=== PATIENT | female | born 1980 | race Caucasian/White ===

== ENCOUNTER → 2021-08-21 15:02 | Outpatient (CLI) | payer OTHER, SELFPAY ==
[2021-08-21 16:06] LABS: Add Manual Diff / Slide Review NO; Basophils Absolute Auto 0 /uL (0-100); Basophils Percent Auto 0.3 % (0-2); Eosinophils Absolute Auto 100 /uL (0-450); Eosinophils Percent Auto 1.4 % (2-4); Hematocrit 34.1 % (36-46); Hemoglobin 11.6 g/dL (12.0-16.0); Lymphocytes Absolute Auto 1000 /uL (1100-4500); Lymphocytes Percent Auto 12.6 % (25-40); Mean Corpuscular HGB Conc 34.1 % (30-36); Mean Corpuscular Hemoglobin 28.9 PG (26-34); Mean Corpuscular Volume 84.8 fL (80-100); Monocytes Absolute Auto 400 /uL (0-900); Monocytes Percent Auto 5.1 % (3-14); Neutrophils Absolute Auto 6300 /uL (1500-7000); Neutrophils Percent Auto 80.6 % (50-75); Platelet Count 160 X10^3/uL (150-400); Red Blood Cell Count 4.02 X10^6/uL (4.0-5.2); Red Cell Distribution Width 13.5 % (11.6-14.8); White Blood Cell Count 7.8 X10^3/uL (4.5-11.0)
[2021-08-22 06:50] LABS: RPR Screen Non Reactive (Non Reactive)
[2021-08-22 07:30] LABS: Varicella IgG Antibody <135 index (Immune >165)
[2021-08-22 11:23] LABS: HIV 1 & 2 Ab/Ag 4th Gen Combo NEGATIVE (NEGATIVE); Hep C Virus Ab w/Reflex Quant NEGATIVE s/c (NEGATIVE); Hepatitis B Surface Antigen NEGATIVE s/c (NEGATIVE)
[2021-08-22 11:24] LABS: Rubella Antibody IgG 12.6 IU/mL (>15)
== END ==
PROVIDERS: Referring Provider Obstetrics & Gynecology; Visit Provider Obstetrics & Gynecology
DX: Z34.80 Encounter for supervision of other normal pregnancy, unspecified trimester (principal)
CPT/HCPCS: 36415; 80055; 86787; 86803; 86850; 86900; 86901; 87389

== ENCOUNTER → 2021-09-28 14:55 | Outpatient (CLI) | payer OTHER, SELFPAY ==
[2021-09-28 20:19] LABS: Urine N gonorrhoeae NOT DETECTED
[2021-09-28 21:30] LABS: Urine Chlamydia NOT DETECTED
[2021-09-29 16:11] LABS: Strep Grp B PCR NEG for Grp B Strep
== END ==
PROVIDERS: Visit Provider Obstetrics & Gynecology
DX: Z34.83 Encounter for supervision of other normal pregnancy, third trimester (principal); Z3A.37 37 weeks gestation of pregnancy
CPT/HCPCS: 87491; 87591; 87653

== ENCOUNTER 2021-10-10 04:45 | Inpatient (IN) | payer OTHER, SELFPAY ==
[2021-10-10 06:10] VITALS: BP 137/66
[2021-10-10 06:43] LABS: COVID19 -Nasal RAPID Negative (Negative)
[2021-10-10 06:51] LABS: Add Manual Diff / Slide Review NO; Basophils Absolute Auto 100 /uL (0-100); Basophils Percent Auto 0.8 % (0-2); Eosinophils Absolute Auto 100 /uL (0-450); Eosinophils Percent Auto 0.9 % (2-4); Hematocrit 39.1 % (36-46); Hemoglobin 12.6 g/dL (12.0-16.0); Lymphocytes Absolute Auto 2000 /uL (1100-4500); Lymphocytes Percent Auto 17.8 % (25-40); Mean Corpuscular HGB Conc 32.3 % (30-36); Mean Corpuscular Hemoglobin 26.7 PG (26-34); Mean Corpuscular Volume 82.7 fL (80-100); Monocytes Absolute Auto 700 /uL (0-900); Monocytes Percent Auto 6.5 % (3-14); Neutrophils Absolute Auto 8100 /uL (1500-7000); Platelet Count 210 X10^3/uL (150-400); Red Blood Cell Count 4.73 X10^6/uL (4.0-5.2); Red Cell Distribution Width 15.4 % (11.6-14.8)
--- NOTE | 2021-10-10 07:00 | PM.AN.REGBLK ---
Regional Block Pre-procedure Procedure: Continuous Lumbar Epidural for L&D Attending OB provider: Dinora Gaitan PMH/ROS narrative: term labor, no complications ASA Class: II Medications: Current Medications Generic Name Dose Route Start Last Admin Trade Name Freq PRN Reason Stop Dose Admin Calcium Carbonate 1,000 mg 10/10/21 05:57 Calcium Carbonate 500 Mg Tab PO Q2HR PRN Dyspepsia Carboprost Tromethamine 250 mcg 10/10/21 05:57 Carboprost 250 Mcg/Ml Ampul IM Q90M PRN Bleeding Fentanyl 50 mcg 10/10/21 05:57 Fentanyl 100 Mcg/2 Ml Inj IV Q1H PRN Pain, Moderate (4-6) Lactated Ringer's 1,000 mls @ 100 mls/hr 10/10/21 06:00 Lactated Ringers IV CONT FAUSTINO Oxytocin/Lactated Ringer's 30 unit in 500 mls @ 200 mls/hr 10/10/21 05:57 Oxytocin Premix IV CONT PRN Bleeding Protocol Tranexamic Acid 1,000 mg/ 100 mls @ 200 mls/hr 10/10/21 05:57 Sodium Chloride IV NOW PRN Bleeding Oxytocin/Lactated Ringer's 30 unit in 500 mls @ 3 mls/hr 10/10/21 06:00 Oxytocin Premix IV TITRATE FAUSTINO Protocol 3 MILLIUNIT/MIN Methylergonovine Maleate 0.2 mg 10/10/21 05:57 Methylergonovine 0.2 Mg Tablet PO Q6HR PRN Heavy Bleeding Methylergonovine Maleate 0.2 mg 10/10/21 05:57 Methylergonovine 0.2 Mg/Ml Vial IM NOW PRN Bleeding Metoclopramide HCl 10 mg 10/10/21 05:57 Metoclopramide 10 Mg/2 Ml Inj IV NOW PRN Nausea And Vomiting Misoprostol 800 mcg 10/10/21 05:57 Misoprostol 200 Mcg Tablet TN NOW PRN Bleeding Naloxone HCl 0.2 mg 10/10/21 05:57 Naloxone 0.4 Mg/Ml Vial IV Q2MIN PRN Opiate Reversal Ondansetron HCl 4 mg 10/10/21 05:57 Ondansetron 4 Mg/2 Ml Inj IV Q4HR PRN Nausea And Vomiting Oxytocin 10 unit 10/10/21 05:57 Oxytocin 10 Unit/Ml Vial IM NOW PRN Bleeding Allergies: Allergies Allergy/AdvReac Type Severity Reaction Status Date / Time misoprostol [From Cytotec] Allergy Intermediate throat Verified 10/10/21 06:09 swelling Penicillins [PENICILLINS] Allergy Unknown Verified 10/10/21 06:09 Procedure Insertion date: 10/10/21 Insertion time: 07:15 Prep/Local: betadine x3 and 1% lidocaine Interspace: L3-4 Patient position: sitting Needle: 18 gauge Hustead (CSE: 27g Pencan through Hustead, clear CSF, 1mL 0.25% bupiv MPF) Loss of resistance with: saline JUMANA at (cm): 5 Catheter placed at SKIN (cm): 10 Catheter in SPACE (cm): 5 Insertion: No CSF, No Blood, No Paresthesia with insertion, No Paresthesia with injection and No Test dose reaction Initial Medications TEST DOSE time: 07:20 TEST DOSE: 1.5% lidocaine with epinephrine 1:200k (mL): 3 BOLUS DOSE time: 07:25 BOLUS DOSE (mL): 5 BOLUS DOSE med: other (infusate) Infusion INFUSION: 0.125% bupivacaine and with fentanyl 2 mcg/mL Initial rate (mL/hr): 6 Subsequent interventions: 4mL 2-chloroprocaine 07:50 Post-procedure Anesthesia time START: 07:01 Anesthesia time END: 10:05 Post-procedure Anesthesia Assessment: Yes CV function: HR/BP stable, Yes Resp function: RR/sat/airway adequate, Yes Mental status appropriate and No Anesthesia complications
--- NOTE | 2021-10-10 07:56 | PM.OBHP.IH.1 ---
OB HPI Date/Time Date of admission: 10/10/21 Date Patient Seen: 10/10/21 Time Patient Seen: 07:56 History of Present Condition Chief complaint: contractions STORM Calculator Estimated Delivery Date Method Current WG Current Estimate 10/14/21 Conception 39w 3d Other Estimates 10/30/21 LMP (Uncertain) 37w 1d 10/13/21 Ultrasound #2 39w 4d Estimated Gestational Age (weeks): 39+ 3 : 4 Para: 3 care: good care, initiated at week # (9), number of visits (11) and pounds weight gain (41) Dating criteria OB: LMP confirmed by 1st trimester US Ultrasounds: normal 1st trimester US and abnormal US findings Abnormal ultrasound findings: Cleft lip and palate Obstetrical complications: gestational diabetes Medical complications OB: none Indications Other reason(s) for admission: Active labor Preadmission Labs Last OB Lab Results: Blood Type A Positive 10/10/21 06:15 Antibody Screen Negative 10/10/21 06:15 Hematocrit 39.1 % (36-46) 10/10/21 06:15 Hemoglobin 12.6 g/dL (12.0-16.0) 10/10/21 06:15 Hepatitis B Surface Antigen Negative s/c (NEGATIVE) 08/21/21 15:23 Hepatitis C Antibody Negative s/c (NEGATIVE) 08/21/21 15:23 Rubella Antibody 12.6 IU/mL (>15) L 08/21/21 15:23 Varicella-Zoster IgG Antibody <135 index (Immune >165) L 08/21/21 15:23 Group B Streptococcus (PCR) Neg for grp b strep 09/28/21 14:55 -: Chlamydia screen: negative and Gonorrhea screen: negative Prior (ies) Past Pregnancies Del. Date GA/Weeks Labor Lgth Wt Sex Route Outcome Anesthesia Place Delv Breastfeed Preg Comp Name Unknown Delivery Date: Last Updated by: Leigh Ann Nieto R.N. Declines giving us any history other than last 2 pregnancies she had Polyhydramnios, and suspected Gestational Diabetes. Had 3 term pregnancies, delivered vaginally at term. Evaluation Evaluation Baseline heart rate: 135 Variability: Moderate (11-25) monitor accelerations: Present Monitor Decelerations: Absent Uterine Contraction Intensity: Strong/Firm Status: Category l Dilation (cm): 10 Effacement (%): 100 station: -1 Position of cervix: mid Consistency: soft PFSH Family History (Updated 05/08/21 @ 15:06 by Leigh Ann Nieto RN) Father Borderline diabetes Social History marital status: number of children: 3 household members: spouse and children lives independently: Yes pets and animals: No (no cats) seatbelt use: always water heater temp set < 120 deg: Yes working smoke detector in home: Yes fire extinguisher in home: No carbon monox detector in home: Yes firearms in home: No Smoking Status: Former smoker second hand exposure: No alcohol intake: former substance use type: does not use during the past year weight has: remained stable well-balanced diet: daily or most days daily servings fruits/ve-4 caffeine: Yes (occas - 200mg) Type(s) of exercise: regular exercise Meds Home Medications and Allergies Home Medications Medication Instructions Recorded Confirmed Type prenat.vits,agus,nlb-psnj-breri 1 tab PO DAILY 05/08/21 10/10/21 History lancets 30 gauge and blood glucose #100 ea 08/03/21 10/05/21 Rx strips combo pack Allergies Allergy/AdvReac Type Severity Reaction Status Date / Time misoprostol [From Cytotec] Allergy Intermediate throat Verified 10/10/21 06:09 swelling Penicillins [PENICILLINS] Allergy Unknown Verified 10/10/21 06:09 OB Exam Narrative Exam Narrative: Generally: Patient partially comfortable after epidural Lungs: Clear to auscultation bilaterally Cardiovascular: Regular rate and rhythm Fundal height: 42 cm Estimated weight: 8 1/2 to 9 lb Extremities: No edema Objective Labs Result Diagrams: 10/10/21 06:15 Labs: Laboratory Results - last 24 hr 10/10/21 10/10/21 10/10/21 06:15 06:15 06:15 WBC 11.0 RBC 4.73 Hgb 12.6 Hct 39.1 MCV 82.7 MCH 26.7 MCHC 32.3 RDW 15.4 H Plt Count 210 Neut % (Auto) 74.0 Lymph % (Auto) 17.8 L [place] % (Auto) 6.5 Eos % (Auto) 0.9 L Baso % (Auto) 0.8 Neut # (Auto) 8100 H Lymph # (Auto) 2000 [place] # (Auto) 700 Eos # (Auto) 100 Baso # (Auto) 100 SARS-CoV-2 (PCR) Negative Blood Type A Positive Antibody Screen Negative Assessment and Plan Assessment and Plan Assessment and Plan narrative: Assessment: 40-year-old 4 para 3 at 39 and 3 seventh weeks gestation in active labor Status post epidural Baby with cleft lip and palate History of gestational diabetes Patient tested blood sugars this and fastings were 70s to 90s Plan: Expected management to spontaneous vaginal Pediatrics an RT notified Time Spent with Patient Total time spent with greater than 50% in coordination of care (as documented) at patient's floor/unit and/or counseling patient:: 15-24 minutes
--- NOTE | 2021-10-10 10:14 | PM.OBPRVD ---
Events: Gestational Diabetes (Probable, no one hour glucose) Labor & Delivery Delivery date: 10/10/21 Intrapartal Events: None Cervical ripening method: none Induction method: none Delivery monitor: external FHT and external uterine Route of delivery: Episiotomy description: None L&D Laceration Description: Perineal - 1st Degree and Vaginal - 2nd Degree Delivery repair: vicryl and chromic Estimated blood loss (mL): 200 Anesthesia Type: Epidural Complications: Moderate shoulder dystocia Narrative: Patient complete and pushed for 39 minutes. At 9:55 a.m., a live female delivered spontaneously in the MELISSA presentation with a compound presentation with the left hand. There was a moderate shoulder dystocia which was resolved with flattening the bed, Dottie, and suprapubic pressure. The shoulder dystocia lasted 32 seconds. The infant was then placed on mom's abdomen. Pitocin was given in the IV fluids. After the cord stopped pulsing, the cord was double clamped and cut. Cord bloods were obtained. The placenta delivered intact with a three-vessel cord at 9:59 a.m.. The fundus was massaged to firm. A second-degree vaginal/perineal laceration was repaired in the usual fashion. Hemostasis was achieved. Estimated blood loss 200 cc. Apgars 8 at 1 minute and 9 at 5 minutes. weight 9 lb 0 oz. Epidural analgesia. Cleft lip and palate observed on baby. Mom and infant stable to recovery. Baby 1: gender: Female Presentation: vertex Position: Left Occiput Anterior Placenta delivery description: Spontaneous Cord Vessel Description: 3 Vessels and Clamped/Cut score (1 min): 8 score (5 min): 9 weight: 9 lb Plan for aftercare: Routine care
[2021-10-10] MEDS: KETOROLAC 30 MG/ML VIAL IV (10:50)
[2021-10-10] MEDS: ACETAMINOPHEN 325 MG TABLET 650 MG PO ×2 (10:51→17:43)
[2021-10-10] MEDS: LANOLIN OINT 7 GM 1 APPLIC TOP (10:51)
[2021-10-10] MEDS: DERMOPLAST SPRAY 20% 60 ML 1 SPRAY TOP (10:52)
[2021-10-10] MEDS: IBUPROFEN 600 MG TABLET PO (17:43)
[2021-10-11] MEDS: IBUPROFEN 600 MG TABLET PO ×2 (01:53→11:10)
[2021-10-11 11:24] VITALS: BP 128/82; PULSE 68; RESP 16; TEMP 36.8
--- NOTE | 2021-10-12 09:51 | P.DS_ITS ---
Discharge Providers Provider Date of admission: 10/10/21 04:45 Discharge Date: 10/11/21 Primary care physician: Dinora Gaitan MD Consults: 10/11/21 10:17 Consult to Associate Software Engineer Routine Comment: Discharge provider: Dinora Gaitan MD Summary Hospital Course Date Patient Seen: 10/11/21 Time Patient Seen: 11:30 Diagnoses: 39-,4/7 weeks gestation Advanced maternal age Spontaneous vaginal delivery Moderate shoulder dystocia Second-degree laceration and repair Hospital Course: Patient is a 40-year-old 4 para 4 who presented in active labor on October 10, 2021. She progressed in labor and had an epidural placed for pain management. Artificial rupture of membranes was performed with clear amniotic fluid. She had a spontaneous vaginal delivery with a moderate shoulder dystocia which was relieved by Dottie maneuver and suprapubic pressure. Baby was born with a cleft lip and palate. Her course was unremarkable and she was discharged home on day # 1. Peripartum Data Infant Delivery Method: Natural Vaginal Laceration Description: Perineal - 2nd Degree and Vaginal - 2nd Degree Episiotomy description: None Procedures: Epidural analgesia Spontaneous vaginal delivery Obstetrical laceration and repair complications: none 1: Gender: Female Disposition of : home Status at Discharge Cognitive/behavioral status at discharge: oriented Functional status at discharge: independent ambulation Overall status at discharge: patient is progressing back to baseline Time Spent with Patient Time attestation: Total time spent providing and/or coordinating discharge services: Time spent: Less than 30 minutes Objective Labs Result Diagrams: 10/10/21 06:15 Exam Narrative Exam Narrative: Generally: Patient is sitting up in chair, holding , no acute distress Fundus: Firm at U Extremities: No edema, negative Homans Discharge Plan Discharge Plan Patient Disposition: Home Provider Discharge Comment: Call with fever, chills, or bleeding vaginally more than a pad in an hour Ibuprofen 600 mg every 6 hours as needed for cramping Tylenol 650 mg every 6 hours as needed for pain Discharge orders & Medications Prescriptions: Continued prenat.vits,agus,[id number] Tablet 1 tab PO DAILY Discontinued (DME) lancets-blood glucose strips 30 gauge combo pack See Rx Instructions .ROUTE .MEDSUPPLY Qty: 100 2RF Rx Instructions: Use to check blood sugar 4 times daily as directed and record on log sheet Follow up/Referrals: Dinora Gaitan MD [Primary Care Provider] - 6 Weeks (Please follow up with Dr. Gaitan in 6 weeks on November 21 @ 1015AM. Please call the clinic with any questions or concerns ) Diet/Activity/Treatments Diet: Regular Activity: Nothing in the vagina for 6 weeks Skin/Wound/Dressing Care Report to your healthcare provider any signs of infection, such as:: chills, fever, increased pain and unusual drainage Visit Report/Discharge Packet Instructions: DI for Labor and Delivery, Vaginal Stand Alone Forms: Discharge: Care Discharge Data Primary Care Provider: Dinora Gaitan
== END 2021-10-11 11:20 | disposition home or self-care (01) | DRG 807 ==
PROVIDERS: Admitting Provider Obstetrics & Gynecology; PCP Obstetrics & Gynecology; Referring Provider Obstetrics & Gynecology; Visit Provider Obstetrics & Gynecology
DX: O24.429 Gestational diabetes mellitus in childbirth, unspecified control (principal); Z37.0 Single live birth; O70.1 Second degree perineal laceration during delivery; Z3A.39 39 weeks gestation of pregnancy; Z20.822 Contact with and (suspected) exposure to COVID-19
CPT/HCPCS: 01967; 36415; 59050; 59400; 85025; 86850; 86900; 86901; 87635; C9803; G0379; J1885